=== PATIENT | female | born 1950 | race Caucasian/White ===

== ENCOUNTER 2016-04-20 10:30 | Day surgery (SDC) | payer BC ==
[~2016-04-20] VITALS: Ht 152.4 cm; Wt 63.5 kg
[~2016-04-20 10:30] MED LIST: CANASA1000 MG PR; COLACE100 MG PO; MACROBID100 MG PO; PAXIL40 MG PO
[2016-04-20 10:59] VITALS: BP 131/73
[2016-04-20 16:00] VITALS: BP 127/60
[2016-04-20 17:00] VITALS: BP 150/74
== END 2016-04-20 17:25 | disposition home or self-care (01) ==
LOC: SDC 10:30
PROC: 06LY3ZC Occlusion of Hemorrhoidal Plexus, Percutaneous Approach (ICD-10-PCS; principal; 2016-04-20)
DX: K64.8 Other hemorrhoids (principal); F17.200 Nicotine dependence, unspecified, uncomplicated
CPT/HCPCS: J0330; J1100; J1170; J2250; J2405; J3010; S0020